=== PATIENT | male | born 2000 | race Caucasian/White ===

== ENCOUNTER 2022-11-23 19:14 | Emergency (ER) | payer BC, SELFPAY ==
--- NOTE | ~2022-11-23 | XR_ITS ---
EXAMINATION: XR FINGER, RIGHT CLINICAL INFORMATION: Right thumb injury. COMPARISON: None TECHNIQUE: Three views of the right thumb. FINDINGS: The bones and soft tissues are normal. No fracture. Alignment is anatomic. Joint spaces are maintained. XR/XR finger RT min 2V IMPRESSION: Normal finger radiographs.
[2022-11-23 20:37] VITALS: BP 135/61; PULSE 81; RESP 18; TEMP 36.4; O2SAT 98; BMI 28.7
--- OUTSIDE RECORDS SUMMARY | 2022-11-23 20:50 | XMS_ITS | Continuity of Care Document ---
:2002 Author Organization [facility] Address [address] [place] [address]- Care Team Providers Name Role Phone Javad John MD, Wing Heredia Primary Care Physician Encounter [facility] [place] Date(s): 06/03/20 - 07/05/[address] [address]- [facility] Attending Physician: Debra Ragsdale PsyD Admitting Physician: Debra Ragsdale PsyD Allergies, Adverse Reactions, Alerts Substance Reaction Severity Status codeine vomiting Active amoxicillin Active penicillin rash Active cephalosporins swelling Active Keflex rash Active Medications CeleXA 20 mg oral tablet 20 mg, 1, tablet, By Mouth, Daily, take half tablet for 1 week, then increase to 1 tablet daily, # 35 tablet, Refills 1, Tot. Refills 1, Maintenance, 02/05/18 13:58:49 EDT, Route to Pharmacy Electronically, [id number], [facility]. Start Date: 02/05/18 Status: Ordereddicyclomine 20 mg oral tablet 1 tablet = 20 mg, By Mouth, 3 times a day, # 90 tablet, 3 Refills, Maintenance, 11/23/17 15:13:12 Start Date: 11/23/17 Status: OrderedFocalin XR 30 mg oral capsule, extended release 1 capsule = 30 mg, By Mouth, Daily in AM, # 30 capsule, 0 Refills, Maintenance, 05/25/18 16:16:58 EDT, CR Capsule Start Date: 05/25/18 Stop Date: 06/24/18 Status: OrderedFocalin XR 30 mg oral capsule, extended release 1 capsule = 30 mg, By Mouth, Daily in AM, do not fill before 03/06/18, # 30 capsule, 0 Refills, Maintenance, 02/05/18 14:02:45 EDT, CR Capsule Start Date: 02/05/18 Status: OrderedImodium A-D 2 mg, By Mouth, Every 4 hours, Refills 0, Maintenance, 11/23/17 14:48:14 Start Date: 11/23/17 Status: OrderedMelatonin Daily at bedtime, 0 Refills, Maintenance, 11/23/17 14:47:41 Start Date: 11/23/17 Status: Ordered Problem List Condition Effective Dates Status Health Status Informant Autism spectrum disorder(Confirmed) Active 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
--- OUTSIDE RECORDS SUMMARY | 2022-11-23 20:51 | XMS_ITS | Continuity of Care Document ---
:2002 Author Organization [facility] Address [address] [address]- Care Team Providers Name Role Phone Javad John MD, Wing Heredia Primary Care Physician Encounter [facility] [place] Date(s): 05/28/20 - 06/04/[address] [address]- [facility] Attending Physician: Debra Ragsdale PsyD Admitting Physician: [...] 02/05/18 13:58:49 EDT, Route to Pharmacy Electronically, [id number], [facility]. Start Date: 02/05/18 Status: Ordereddicyclomine 20 [...]
--- OUTSIDE RECORDS SUMMARY | 2022-11-23 20:51 | XMS_ITS | Continuity of Care Document ---
:2002 Author Organization [facility] Address [address] [place] [address]- Care Team Providers Name Role Phone Javad John MD, Wing Heredia Primary Care Physician [phone] [facility] [place] Date(s): 12/30/19 - 01/09/[address] [address]- [facility] Attending Physician: AdmAshley stevens Admitting Physician: AdmtrAshley Referring Physician: Admtr, ArArun Allergies, Adverse Reactions, Alerts Substance Reaction Severity Status codeine vomiting Active amoxicillin Active penicillin rash Active cephalosporins swelling Active Keflex rash Active Medications CeleXA 20 mg oral tablet 20 mg, 1, tablet, By Mouth, Daily, take half tablet for 1 week, then increase to 1 tablet daily, # 35 tablet, Refills 1, Tot. Refills 1, Maintenance, 02/05/18 13:58:49 EDT, Route to Pharmacy Electronically, [id number], [facility]. Start Date: 02/05/18 Status: Ordereddicyclomine 20 [...]
--- OUTSIDE RECORDS SUMMARY | 2022-11-23 20:51 | XMS_ITS | Continuity of Care Document ---
:2002 Author Organization [facility] Address [address] [address]- Care Team Providers Name Role Phone Javad John MD, Wing Heredia Primary Care Physician [place] [facility] [place] Date(s): 12/10/19 - 01/29/[address] [address]- [facility] Attending Physician: Debra Daugherty Admitting Physician: Debra Daugherty Allergies, Adverse Reactions, Alerts Substance Reaction Severity Status codeine vomiting Active amoxicillin Active penicillin rash Active cephalosporins swelling Active Keflex rash Active Medications CeleXA 20 mg oral tablet 20 mg, 1, tablet, By Mouth, Daily, take half tablet for 1 week, then increase to 1 tablet daily, # 35 tablet, Refills 1, Tot. Refills 1, Maintenance, 02/05/18 13:58:49 EDT, Route to Pharmacy Electronically, [id number], [facility]. Start Date: 02/05/18 Status: Ordereddicyclomine 20 [...]
--- OUTSIDE RECORDS SUMMARY | 2022-11-23 20:51 | XMS_ITS | Continuity of Care Document ---
:2002 Author Organization [facility] Address [address] [address]- Care Team Providers Name Role Phone Javad John MD, Wing Heredia Primary Care Physician [place] [facility] [place]/25[place] - 06/01/[address] [address]- [facility] Attending Physician: Debra Ragsdale PsyD [...] 02/05/18 13:58:49 EDT, Route to Pharmacy Electronically, [id number], [facility]. Start Date: 02/05/18 Status: Ordereddicyclomine 20 [...]
--- OUTSIDE RECORDS SUMMARY | 2022-11-23 20:51 | XMS_ITS | Continuity of Care Document ---
:[address] [facility] Address [address] [place] [address]- Care Team Providers Name Role Phone Javad John MD, Wing Heredia Primary Care Physician [place] [facility] [place] Date(s): 06/10/20 - 07/12/[address] [address]- [facility] Attending Physician: Debra Ragsdale PsyD Admitting [...] 02/05/18 13:58:49 EDT, Route to Pharmacy Electronically, [id number], [facility] Start Date: 02/05/18 Status: Ordereddicyclomine 20 mg [...]
--- OUTSIDE RECORDS SUMMARY | 2022-11-23 20:51 | XMS_ITS | Continuity of Care Document ---
:2002 Author Organization [facility] Address [address] [place] [address]- Care Team Providers Name Role Phone Javad John MD, Wing Heredia Primary Care Physician [phone] En[place] [facility] [place] Date(s): 06/12/20 - 07/12/[address] [address]- [facility] Attending Physician: AdmAshley steevns Admitting Physician: AdmtrAshley Referring Physician: Admtr, ArArun [...] 02/05/18 13:58:49 EDT, Route to Pharmacy Electronically, [id number], [facility]. Start Date: 02/05/18 Status: Ordereddicyclomine 20 [...]
--- NOTE | 2022-11-23 21:40 | ED_ITS ---
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 Patient had recent tetanus shot update due to recent injury. Related Data Allergies Allergy/AdvReac Type Severity Reaction Status Date / Time Opioids - Morphine Analogues Allergy Anaphylaxis Verified 11/23/22 20:36 Penicillins Allergy Unknown Verified 11/23/22 20:36 Review of Systems Review of Systems: All other systems are reviewed and are negative Constitutional: Reports as per HPI and Reports no additional constitutional complaints Eyes: Reports as per HPI and Reports no additional eye complaints Reports system reviewed and no additional complaints, except as documented Cardiovascular: Reports as per HPI and Reports no additional cardiovascular complaints Respiratory: Reports as per HPI and Reports no additional respiratory complaints Gastrointestinal: Reports as per HPI and Reports no additional gastrointestinal complaints Genitourinary: Reports no additional female genitourinary complaints Musculoskeletal: Reports no additional musculoskeletal complaints Skin/Breast: Reports system reviewed and no additional complaints, except as docu Psychiatric: Reports no additional psychiatric complaints Endocrine: Reports no additional endocrine complaints Hematologic/Lymphatic: Reports no additional hematologic/lymphatic complaints Allergic/Immunologic: Reports no additional allergic/immunologic complaints Reports system reviewed and no additional complaints, except as documented and Reports Abnormal speech present PMFSH Social History Social History Advance Directives: No Advance Directives Information Provided: No Physical Exam Vital Signs: Vital Signs: Last Vital Signs Temp 97.6 F 11/23/22 20:37 Pulse 81 11/23/22 20:37 Resp 18 11/23/22 20:37 BP 135/61 11/23/22 20:37 Pulse Ox 98 11/23/22 20:37 O2 Del Method 11/23/22 20:37 BMI result Body Mass Index 28.7 Vital signs have been reviewed as appeared to be correct. Blood pressure normal. Heart rate normal. Respiration rate normal. Temperature normal. Oxygen saturation normal. Appearance: Alert. Oriented X3. No acute distress. Head: Normal external exam. Normocephalic. Atraumatic. No Santana signs noted. No raccoon eyes noted Eyes: PERRLA. EOMI. Conjunctiva and sclera normal. Eyelids normal. ENT: TM's Normal. Pharynx normal. Uvula midline. Moist mucous membranes. No trismus noted. No drooling noted. No muffled voice noted. Neck: Normal inspection. Neck supple. FROM. No adenopathy. Thyroid Normal. No meningeal signs. No neck mass noted. CVS: Normal heart rate and rhythm. Heart sound normal. No murmurs noted. Pulses normal throughout. Respiratory: No respiratory distress. Painless inspiration. Breath sounds normal. No wheezes/rales/rhonchi noted. Chest nontender. No accessory muscle usage noted or decreased air movement noted. Abdomen: Soft and nontender. Bowel sounds normal in all 4 quadrants. No distention noted. No organomegaly noted. No visible injury noted. Back: No CVA tenderness. Full range of motion noted. Skin: Skin warm and dry. Normal skin color. Normal skin turgor. No rashes/lesions/lacerations noted. Extremities: 5 cm laceration to the dorsum aspect of right thumb, no foreign body is visualized, able to move the thumb with no tendon injury concern. Neuro: Oriented X 3. Cranial nerve exam: II-XII are grossly intact No motor deficit. No sensory deficit. Reflexes normal. Course Course Course Narrative: Right thumb injury causing right thumb laceration, neurovascularly intact, normal x-ray without foreign body. Please refer to procedure note. Procedures Laceration Laceration 1: Site: hand (Thumb) Side (If applicable): right Size (cm): 4 Description: linear Depth: simple, single layer Local Anesthetic: lidocaine 1% Amount of anesthesia used (mL): 5 Pre-repair: wound explored and irrigated extensively Skin layer closed with: nylon Size (cm): 4-0 Number of sutures: 6 Technique: simple, interrupted Discharge Plan Discharge Clinical Impression: Laceration of right thumb Patient Disposition: Home, Self-Care Instructions: Finger Laceration (ED) Additional Instructions: See your PCP or return to the emergency department in 7-10 days for suture removal. Return if fever or chills, or notice any redness, discharge coming out of the wound. Keep the wound dry and clean, wear gloves if you need to work with your right hand to keep the wound clean. Stand Alone Forms: Work/School Release
== END 2022-11-23 22:36 | disposition home or self-care (01) ==
PROVIDERS: Emergency Provider Emergency Medicine
DX: S61.011A Laceration without foreign body of right thumb without damage to nail, initial encounter (principal); W22.8XXA Striking against or struck by other objects, initial encounter; Y93.89 Activity, other specified; Y92.9 Unspecified place or not applicable; Y99.0 Civilian activity done for income or pay
CPT/HCPCS: 12002; 73140; 99282; 99283

== ENCOUNTER 2025-09-01 18:00 | Emergency (ER) | payer OTHER, SELFPAY ==
--- NOTE | ~2025-09-01 | XR_ITS ---
CLINICAL HISTORY: pain 4 view right wrist Comparison: None provided Findings: No fractures or dislocations. No significant loss of joint space, osteophyte, or erosions. No radiopaque foreign body. IMPRESSION: 1. No acute findings This document has been electronically signed by: Sandro Gamboa MD on 09/01/2025 19:09:57
--- NOTE | ~2025-09-01 | XR_ITS ---
CLINICAL HISTORY: pain 3 view right hand Comparison: None provided Findings: No fractures or dislocations. No significant arthritic change. No erosions. No radiopaque foreign body. IMPRESSION: 1. No acute findings This document has been electronically signed by: Sandro Gamboa MD on 09/01/2025 19:09:24
--- NOTE | ~2025-09-01 | XR_ITS ---
CLINICAL HISTORY: ?Fx 2 view right forearm Comparison: None provided Findings: No fractures or dislocations. No joint effusion. No significant arthritic change. No radiopaque foreign body. IMPRESSION: 1. Normal right forearm This document has been electronically signed by: Sandro Gamboa MD on 09/01/2025 20:39:02
[2025-09-01 18:16] VITALS: BP 156/65; PULSE 62; RESP 16; TEMP 36.2; O2SAT 97; BMI 31.8
--- NOTE | 2025-09-01 18:18 | ED.UPPEXIN ---
HPI - Extremity Injury (Upper) General Chief Complaint: Extremity Problem Stated Complaint: ? wrist fracture Time Seen by Provider: 09/01/25 19:27 History of Present Illness ED Provider: Colette Gonsales HPI narrative: 25-year-old male presents to the ED reporting an injury to the right wrist that occurred 1 day ago when he was snowboarding. He describes that he was [place] a [place] when he lost balance, leaned his body backwards and put his hand flat down to stop his fall (palm extended) and how has discomfort in the wrist, near the thumb. Reports discomfort to the radial aspect of the wrist, worse with movement, as well as swelling. No tingling in the fingertips or limited range of motion. No numbness. Denies any elbow pain or finger pain, reports pain is located primarily in the right wrist. He would like to know if there is a fracture. No chest pain, shortness of breath, abdominal pain, fever or chills. Related Data Allergies Allergy/AdvReac Type Severity Reaction Status Date / Time Opioids - Morphine Analogues Allergy Anaphylaxis Verified 09/01/25 18:19 Penicillins Allergy Unknown Verified 09/01/25 18:19 Review of Systems Review of Systems: ROS is otherwise negative unless mentioned in HPI. [facility] Social History Social History Advance Directives: No Advance Directives Information Provided: No Physical Exam Exam: Exam: Nursing notes and vital signs reviewed. Constitutional: Well-appearing, NAD. Alert. Oriented X3. Eyes: EOMI. Neck: Normal inspection. Neck supple. CVS: Pulses normal. Respiratory: No respiratory distress. Abdomen: Nondistended. Skin: Skin warm and dry. Normal skin color. Extremities: No lower extremity edema. +CSM, 2+ radial pulses. Mild swelling to the right wrist. Neuro: Oriented X 3. No motor deficit. Vital Signs: Vital Signs: Last Vital Signs Temp 97.2 F 09/01/25 21:12 Pulse 62 09/01/25 21:12 Resp 16 09/01/25 21:12 BP 156/65 H 09/01/25 21:12 Pulse Ox 97 09/01/25 21:12 O2 Del Method Room Air 09/01/25 21:12 BMI result Body Mass Index 31.8 Course Course Course Narrative: This is an RME: Additional HPI, ROS, PE not included below will be deferred to primary provider. RME assessment and note performed by: Lisbet Coello PA-C This is a 47-cuyi-yld-male who presents to the ER with complaints of right wrist pain. Reports that he accidentally fell twice while snowboarding yesterday. Right wrist with moderate edema and ttp overlying the distal radius. Plan: xray wrist/hand Medical Decision Making Medical Decision Making MDM Narrative: He overall appears well. There is a mild amount of swelling located to the radial aspect of the wrist, closest to the thumb. Range of motion is intact. Does endorse some discomfort with extension of the wrist. X-ray imaging here was obtained of the forearm, hand, and wrist which shows no acute fracture. I did question if there would be underlying snuffbox fracture given the location of the discomfort, and place the patient in a Velcro thumb spica splint and recommended repeat imaging in the next 3-5 days if symptoms persist. He is agreeable to the plan of care. I have recommend he follow up outpatient with Orthopedics. With any worsening complaints, provided return precautions to the ED. Differential Diagnosis Differential Diagnoses: The differential diagnosis associated with the presentation includes Fracture, dislocation, sprain Admission/Observation Consideration of admission/observation: Escalation of care including admission/observation considered (Not indicated) Independent Interpretation I performed an independent interpretation of an: Plain X-Ray Interpretation: I have reviewed the patient's imaging and agree with the radiologist's findings. Radiology Impression Discussion of test interpretation with radiology: I have reviewed the radiologist's reading. Radiologist Impression: IMPRESSION: 1. Normal right forearm IMPRESSION: 1. No acute findings IMPRESSION: 1. No acute findings Independent Historian None External Record Review None Social Determinants Patient?s care significantly limited by Social Determinants of Health including: Problems related to primary support group Discharge Plan Discharge Clinical Impression: Injury of wrist, right Qualifiers: Encounter type: initial encounter Qualified Code(s): S69.91XA - Unspecified injury of right wrist, hand and finger(s), initial encounter Patient Disposition: Home, Self-Care Instructions: Wrist Sprain (ED) Additional Instructions: As we discussed, the x-rays here do not show any obvious fracture. We would like for you to follow up Orthopedics within the next 2-3 days, as you may require repeat imaging. We have placed you in a wrist splint that she will be warmth for the next 2-3 days, and to have repeat x-rays and confirmed there was no fracture, or cleared by Orthopedics. You may use Tylenol, ibuprofen [id number] as needed for pain. With any worsening complaints at any time, please seek re-evaluation in the ED. Referrals: [facility]geons [Provider Group] Stand Alone Forms: Work/School Release Interventions: ED Discharge Assessment Last Done: 09/01/25 21:12 Discharge Date/Time: 09/01/25 21:13 Print Language: Kuwaiti
--- OUTSIDE RECORDS SUMMARY | 2025-09-01 20:39 | XMS_ITS | Clinical Summary ---
Author Organization [facility] Address [address] [place] [id number] Phone Care Team Providers Care Erp Developer Name Role Phone Unavailable Primary Care Provider Unavailabl e Immunizations Immunization Administration Dates Next Due DTaP 5 06/09/2006, 4,2002,2002 ,2002 H1N1 10/29/2009,09/01/2009 Hep B, ped/adol 04/09/2003,2002,2002 Hib (PRP-T) 09/10/2003,2002,2002 ,2002 IPV 06/09/2006,04/09/2003,2002 ,2002 Influenza, injectable, trivalent 10/29/2009,08/10,09/07/2006 Influenza, intranasal, trivalent 06/11/2010 MMR 06/09/2006,06/10/2003 Pneumococcal Conjugate 2002,2002, Varicella 05/11/2009,06/10/2003 Family History Relation Name Status Comments Brother Alive Brother: Alive and well Cousin Alive Cousin: Cancer - Father Alive Father: Alive a nd well Mother Mother: anxiety Other Family history of Diabetes mellitus, Family history of Coronary artery disease Social History Tobacco Use Types Packs/Day Years Used Date Smoking Tobacco: Never Assessed Sex and Gender Information Value Date Recorded Sex Assigned at Not on file Legal Sex Male 4:36 PM EDT Gender Identity Not on file Sexual Orientation Not on file Last Filed Vital Signs Vital Sign Reading Time Taken Comments Blood Pressure 100/50 06/11/2010 12:00 AM EDT Pulse - - Temperature - - Respiratory Rate - - Oxygen Saturation - - Inhaled Oxygen Concentration - - Weight 34.5 kg (76 lb) 06/11/2010 12:00 AM EDT Height 139.7 cm (4' 7 ) 06/11/2010 12:00 AM EDT Body Mass Index 17.66 06/11/2010 12:00 AM EDT Plan of Treatment Health Maintenance Due Date Last Done Comments DTaP,Tdap,and Td Vaccines (6 - Tdap) 2013 06/09/2006, 12/16/2003, 2002, Additional history exists HPV Vaccines (1 - Male 3-dose series) 2017 Men B Vaccine (1 of 2 - Standard) 2018 Influenza Vaccines (#1) 2025 06/11/20, 10/29/2009, 09/01/2009, Additional history exists COVID-19 Vaccine ( - season) 2025 Pneumococcal Vaccine Aged Out 2002, 2002, 2002 No longer eligible based on patient's age to complete this topic Hepatitis B Vaccines Completed 04/09/2003, 2002, 2002 HIB Vaccines Completed 09/10/2003, 12/07, 2002, Additional history exists IPV Vaccines Completed 06/09/2006, 11/2002, 2002, Additional history exists MMR Vaccines Completed 06/09/2006, 06/10/2003 Varicella Vaccines Completed 05/11/2009, 06/10/2003 Hepatitis A Vaccines Aged Out No long er eligible based on patient's age to complete this topic Meningococcal Vaccine Aged Out No umer bjorn eligible based on patient's age to complete this topic
--- OUTSIDE RECORDS SUMMARY | 2025-09-01 20:39 | XMS_ITS ---
Author Name [facility] Organization Unknown Care Team Organization Name Specialty Phone Email Start Date End Da hair [facility] Termed, PROVIDER Primary Care 08/16/202205/09
--- OUTSIDE RECORDS SUMMARY | 2025-09-01 20:39 | XMS_ITS | Encounter Summary ---
Author Organization [facility] Address [address] [place] [address] Phone Care Team Providers Care Melt Superintendant Name Role Phone Greg Lind MD Primary Care Provider Telma mercer Encounter Details Date Type Department Care Team (Late st Contact Info) Description 02/01/2010 Documentation [facility] [address] [place], [place] [id number] Family Medicine, Physician [address] [place] [address] Social History Tobacco Use Types Packs/Day Years Used Date Smoking Tobacco: Never Assessed Sex and Gender Information Value Date Recorded Sex Assigned at Not on file Legal Sex Male 4:36 PM EDT Gender Identity Not on file Sexual Orientation Not on file documented as of this encounter Plan of Treatment Not on file documented as of this encounter Visit Diagnoses Not on filedocumented in this encounter Care Teams Melt Superintendant Relationship Specialty Start Date End Date Greg Lind MD PCP - General 05/19/17 01/17/23 documented as of this encounter
--- OUTSIDE RECORDS SUMMARY | 2025-09-01 20:39 | XMS_ITS | Encounter Summary ---
Author Organization [facility] Address [address] [place] [address] Phone Care Team Providers Care Storage Administrator Name Role Phone Greg Lind MD Primary Care Provider Telma mercer Encounter Details Date Type Department Care Team (Late st Contact Info) Description 05/25/2017 Conversion Encounter [facility] - [address] [address] Social History Tobacco Use Types Packs/Day Years [...] on filedocumented in this encounter Care Teams Storage Administrator Relationship Specialty Start Date End Date Greg Lind MD PCP - General 05/19/17 01/17/23 documented as of this encounter
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
--- OUTSIDE RECORDS SUMMARY | 2025-09-01 20:39 | XMS_ITS | Data Portability ---
Author Organization [facility] [address] Address [address] [place] [address] Assessment No assessment recorded. Plan of Treatment Reminders Order Date Submit Date Provider Last Modified By Organization Details Last Modified Time Details Appointments None record ed. Lab None record ed. Referral None record ed. Procedures None record ed. Surgeries None record ed. Imaging None record ed. Medication Orders None record ed. Patient TargetsNo targets recorded. Patient Instructions Encounter Date Encounter Id Patient Instructions Last Modified By Organization Details Last Modified Time 10/07/2022 [id number] cuts: care instructions [email or web address] Not available 10/07/2022 19:41:08 wound care* CHELI Not available 09/10 20:21:09 cuts closed with stitches: care instructions [email or web address] Not available 10/07/2022 19:41:08 wound care for sutures (patient instructions) [email or web address] Not available 10/07/2022 19:41:08 Discharge Instructions - Wound Care - Wash the wound gently with soap and warm water once daily. Otherwise keep wound clean, dry and covered with a dressing. - Do not immerse in water, and do not use alcohol or peroxide to clean. Do not use iodine or mercurochrome. - Elevate to decrease pain and improve healing. - Minimize use of affected body part. - Return here or see your doctor for any sign of infection, including redness, swelling, pus or increased pain. - Return for wound check in 2 or 3 days. - Return to have stiches removed in 10 days. General recommendations: Scalp- 7 days Face- 5 day over joints - 14 days Hands/feet- 12 days Other areas - 10 days - If you received a tetanus shot the site may become sore and you may develop a low-grade fever. Take Tylenol if you have fever or pain. Return for a more severe reaction. - See your doctor or return here if not improving in 3 days. A laceration is a cut in the skin that may or may not need sutures (stitches) which will require you to care for the wound. Some lacerations may be held together with surgical tape (butterfly strips) until they heal. Sutures are used to hold the wound together so it will heal, and then have to be removed by a health prompt care rn after the wound heals. Sutures that are not removed in time may get infected. Infection is the most important complication with any wound and must be watched for. TREATMENT: If prescribed, take all medications as directed. Keep your dressing (bandage) clean and dry. If the dressing gets wet and must be changed, unwrap it slowly and carefully. If the dressing sticks or starts to hurt, use warm clean water to gently loosen it. Pat the area dry with a clean towel before putting on another dressing. Apply Neosporin and cover the wound at all times with a sterile bandage (gauze) which [facility] at [facility]. Change the dressing every day or as instructed. Keep the wound dry for 48 hours. After that time you can clean the wound gently with mild soap and water. Use 1/2 strength Hydrogen Peroxide (mixed 1/2 and 1/2 with water) and a Q-tip to remove crusted blood on sutures. Do not soak the wound or go swimming. Do not bump or hit the wound area. Try to elevate the wound above the heart, if possible. This will help to reduce swelling and reduce healing time. Remember to have the stitches removed in the time indicated on your discharge instruction sheet. After the stitches are removed you should continue to watch for the signs noted below. You may wish to cover the wound with a sunscreen (#15) when you are out in direct sunlight (and tanning light) to help prevent excessive scarring and discoloration. All wounds heal with a scar. Many factors influence how large, small or visible a scar will become, and it is difficult to predict if a particular wound will heal with a noticeable scar. While a scar is forming, it will undergo many changes in texture and color which is normal. Scars improve in appearance over six (6) months to a year. CONTACT YOUR DOCTOR, RETURN TO [facility] OR GO TO THE EMERGENCY DEPARTMENT IF ANY OF THE FOLLOWING OCCUR: Fever (great than 101F/38.3C by mouth) or shaking chills begin or worsen. Blood soaks through the dressing. Once this happens be sure to elevate the wound and apply pressure over the dressing with your hand. If your wound becomes warm, red, swollen, shows pus, red streaks going away from the wound on the skin, a bad smell or increased soreness. [email or web address] Not available 10/07/2022 18:57:42 Reason for Referral None Reported. Results Created Date Observation Date Name Description Value Unit Range Abnormal Flag Note LastModifiedBy Organization Detail LastModifiedTime Result Notes None recorded. Problems No Known Problems Procedures Surgical History Date Name Laterality Status Provider Name and Address Organization Details Recorded Time 10/07/20 22 Laceration, Simple Repair, (scalp/neck/trunk /genitalia/extrem ities) 0.1-2.5cm completed PORSCHE JIMENEZ [address], [address], [place] - [facility] 10/07/2022 19:42:41 tonsillectomy completed LUDY GILMORE [place] - [facility] 10/07/2022 18:34:54 extraction of wisdom tooth completed LUDY GILMORE [place] - [facility] 10/07/2022 18:35:22 Imaging Results None recorded. Procedure Notes None recorded. Medical Equipment None Reported. Allergies Allergen ID Allergen Name Allergen Category Reaction Reaction Severity Criticality Documentation Date Start Date Code Code System Note Provider Name and Address Organization Details Recorded Time 86931 amoxicill in medicatio n Not available Not available Not available 10/07/2022 723 RxNorm LUDY feliciano, [place] - [facility] 18:32:28 86392 Product containin g penicilli n (product) medicatio n Not available Not available Not available 10/07/2022 59663 8001 SNOMED LUDY feliciano, [place] - [facility] 18:32:34 90886 Omnicef medicatio n Not available Not available Not available 10/07/2022 13335 RxNorm LUDY feliciano, [place] - [facility] 2 18:32:45 84794 Duricef medicatio n Not available Not available Not available 10/07/2022 40328 6 RxNorm LUDY feliciano, [place] - [facility] 2 18:32:50 Medications Name Sig Start Date Stop Date Status Note LastModified by Organization Details LastModified Time fluticasone propionate 50 mcg/actuati on nasal spray,suspe nsion 10/07 completed Not Available Not Available Not Available BinaxNOW COVID-19 Ag Self Test kit TEST DIRECTED TODAY 10/07 completed Not Available Not Available Not Available Vitals Date Recorded Body height Body mass index (BMI) [Percentile] Per age and sex Body mass index (BMI) Body weight Body temperature Oxygen saturation Heart rate Respiratory rate Provider Name and Address Organization Details Last Updated DateTime 2 190.5 cm 90 % 28.7 kg/m2 018619. 25 g 98 [degF] 99 % 91 /min 18 /min LUDY GILMORE [place] - [facility] 2 18:36:06 Social History Question Answer Notes LastModified by [employer] Details LastModified Time Tobacco Smoking Status Never Smoker LUDY feliciano, [place] - [facility] 10/07/2022 18:34:39 Have You Recently Traveled Abroad? No [email or web address] Information not available 10/07/2022 Sex: Unknown Functional Status Question Answer Note LastModified by [employer] Details LastModified Time Do you use any illicit or recreational drugs? Yes 2-3x/week [email or web address] Information not available 10/07/2022 Do you or have you ever used any other forms of tobacco or nicotine? No [email or web address] Information not available 10/07/2022 What is your level of alcohol consumption? Occasional [email or web address] Information not available 10/07/2022 Mental Status None recorded. Family History Relationship Description Onset Age of this Age Resolved Age Notes LastModified by Organization Details LastModified Time Father No current problems or disability [email or web address] Not available 12/30 /2022 18:34:08 Mother No current problems or disability Not available 10/07 18:34:08 Medical History No medical history recorded. Immunizations Vaccine Type Date Status Note Provider Nam e and Address Organization Details Recorded Time Td (adult), 2 Lf tetanus toxoid, preservative free, adsorbed 2 completed JERICHO Barlow - [facility] 10/07/2022 19:43:11 Past Encounters Encounter ID Performer Location Encounter Start Date Encounter Closed Date Diagnosis/Indication Diagnosis SNOMED-CT Code Diagnosis ICD10 Code Diagnosis IMO Codes Diagnosis Note [id number] [address] [place] [address] 12/16/2020 12:35:14 12/16/2020 14:10:27 [id number] [address] [place] [address] 03/09/2016 18:14:17 03/09/2016 20:00:10 [id number] [address] [place] [address] 07/15/2017 14:05:01 07/15/2017 15:04:48 [id number] [address] [place] [address] 08/16/2021 12:41:15 08/16/2021 14:26:15 [id number] [address] [place] [address] 05/03/2015 13:04:11 05/03/2015 14:34:49 [id number] [address] [place] [address] 06/18/2019 09:16:29 06/18/2019 09:59:32 [id number] [address] [facility] [place] [address] 05/12/2016 12:20:58 05/12/2016 13:17:21 [id number] [facility] [place] [address] 04/02/2021 15:06:22 04/02/2021 17:19:58 [id number] [facility]ERIC[facility] FRIED [address] [place] [address] 10/07/2022 18:24:44 10/07/2022 19:42:42 Laceration of finger of right hand [id number] S61.212A Health Concerns Section Related Observation LastModified by Organization Detai ls LastModified Time None Recorded Concern Status LastModified by Organization Details LastModified Time None Recorded Advance Directives Directive None Recorded Payers Insurance Date Sequence Insurance Name Policy Number Policy Rogers Covered Member ID Rogers Member ID Guarantor Name 11/10/2022 1 [facility]: HMO [facility] (HMO) [id number] Louie Reyes [id number] Bright Reyes 11/10/2022 2 [facility] (POS) [id number] Bright Reyes [id number] Bright Reyes Notes Date Note Type Note Provider Name and Address Organization Details Recorded Time 10/07/20 22 text/htm l Wound / LacerationReported by PatientHPIFor source of patient information, patient reportsinformation obtained from patient. For location, patient reportswound # 1 finger. For quality, patient reportslacerationandwound 1 size in cm 3. For severity, patient reportsmild. For duration, patient reports2 hours. For alleviating factors, patient reportspressure. For associated symptoms, patient reportsno feverandno bruising. For vaccination status, patient reportstetanus vaccine within the past 5 years.was cleaning in garage and cut with metal scrap JERICHO BLANCAS [address] [place], [address], [place] - [facility] 10/07/2022 19:42:47
--- OUTSIDE RECORDS SUMMARY | 2025-09-01 20:39 | XMS_ITS | Encounter Summary ---
Author Organization [facility] Address [address] [place] [address] Phone Care Team Providers Care Hot Car Charger Name Role Phone Greg Lind MD Primary Care Provider Telma mercer Encounter Details Date Type Department Care Team (Late st Contact Info) Description 06/22/2011 Documentation EM Family Medicine [address] [place], [place] [phone] Family Medicine, Physician [address] [place] [address] Social History Tobacco Use Types Packs/Day Years [...] on filedocumented in this encounter Care Teams Hot Car Charger Relationship Specialty Start Date End Date Greg Lind MD PCP - General 05/19/17 01/17/23 documented as of this encounter
[2025-09-01 21:12] VITALS: BP 156/65; PULSE 62; RESP 16; TEMP 36.2; O2SAT 97
== END 2025-09-01 21:13 | disposition home or self-care (01) ==
PROVIDERS: Emergency Provider Emergency Medicine
DX: S69.91XA Unspecified injury of right wrist, hand and finger(s), initial encounter (principal); W19.XXXA Unspecified fall, initial encounter; Y93.23 Activity, snow (alpine) (downhill) skiing, snowboarding, sledding, tobogganing and snow tubing; Y92.9 Unspecified place or not applicable
CPT/HCPCS: 73090; 73110; 73130; 99282; 99283

== ENCOUNTER → 2025-09-01 18:20 | Outpatient (BNV) | payer SELFPAY | PROVIDERS: Visit Provider Radiology Diagnostic Radiology | DX: M25.531 Pain in right wrist (principal); M79.641 Pain in right hand; Z03.89 Encounter for observation for other suspected diseases and conditions ruled out | CPT/HCPCS: 73090; 73110; 73130 ==